=== PATIENT | female | born 1990 | race Caucasian/White ===

== ENCOUNTER 2017-04-22 12:39 | Emergency (ER) | payer OTHER ==
[2017-04-22] MEDS ORDERED: Sodium Chloride 0.9% 1,000 ML IV ONE (13:28)
[2017-04-22 13:46] LABS: BASO % 0.4 % (0.0-2.0); EOS # 0.3 K/uL (0.0-0.7); EOS % 2.3 % (0.0-4.0); HEMATOCRIT 37.3 % (34.0-47.0); LYMPH # 2.6 K/uL (1.0-4.3); LYMPH % 23.5 % (20.0-40.0); MEAN CELL VOLUME 84.9 fL (81.0-99.0); MEAN CORPUSCULAR HEMOGLOBIN 28.6 pg (27.0-31.0); MEAN CORPUSCULAR HGB CONC 33.7 g/dL (33.0-37.0); MEAN PLATELET VOLUME 9.4 fL (7.2-11.7); MONO # 0.7 K/uL (0.0-0.8); MONO % 6.3 % (0.0-10.0); RED CELL DISTRIBUTION WIDTH 13.5 % (11.5-14.5)
[2017-04-22 13:56] LABS: RBC URINE 1 /hpf (0-3); URINE BACTERIA FEW (<OCC); URINE BILIRUBIN NEGATIVE (NEGATIVE); URINE BLOOD NEGATIVE (NEGATIVE); URINE COLOR Yellow (YELLOW); URINE GLUCOSE (UA) NORMAL (Normal); URINE KETONE NEGATIVE (NEGATIVE); URINE LEUKOCYTE ESTERASE NEG Leu/uL (Negative); URINE PROTEIN NEGATIVE (NEGATIVE); URINE UROBILINOGEN NORMAL mg/dL (0.2-1.0); WBC URINE 3 /hpf (0-5)
[2017-04-22] MEDS ORDERED: Sodium Chloride 0.9% 1,000 ML ONE (14:04)
[2017-04-22 14:44] LABS: CHLORIDE 103 mmol/L (98-107); SODIUM 137 mmol/L (132-148)
[2017-04-22 14:45] LABS: POTASSIUM 4.2 mmol/L (3.6-5.2)
[2017-04-22 14:47] LABS: ALKALINE PHOSPHATASE 52 U/L (38-126); ALT/SGPT 25 U/L (9-52); AST/SGOT 22 U/L (14-36); BILIRUBIN,TOTAL 0.5 mg/dL (0.2-1.3); BLOOD UREA NITROGEN 8 mg/dL (7-17); CARBON DIOXIDE 20 mmol/L (22-30); GFR AFRICAN-AMERICAN > 60; GLUCOSE,RANDOM 83 mg/dL (65-105); TOTAL PROTEIN 7.2 g/dL (6.3-8.3)
[2017-04-22 14:48] LABS: CALCIUM 8.4 mg/dl (8.6-10.4)
--- NOTE | 2017-04-22 15:22 | C.PDOC ---
History Of Present Illness Pt has a near-syncopal episode while at an outpt office. Time Seen by Provider: 04/22/17 13:19 Chief Complaint (Nursing): Dizziness/Lightheaded History Per: Patient Onset/Duration Of Symptoms: Hrs (Just [employer]) Current Symptoms Are (Timing): Better Activity At Onset Of Symptoms: Walking Associated Symptoms Preceding Syncopal Episode: Lightheadedness, Worse With Standing Seizure Or Post-ictal Symptoms: None Possible Causative Factor(s): Lightheaded W/Standing Fall Associated With With Symptoms: No Severity: Moderate Additional History Per: Prior Records - Symptoms Of CVA Recent Head Trauma: No Past Medical History Reviewed: Historical Data, Nursing Documentation, Vital Signs Vital Signs: Last Vital Signs Temp 98.1 F 04/22/17 12:53 Pulse 95 H 04/22/17 12:53 Resp 20 04/22/17 12:53 BP 116/87 04/22/17 12:53 Pulse Ox 97 04/22/17 12:53 - Medical History PMH: HTN (GESTATIONAL) Other PMH: Pt is 21 weeks . Surgical History: - [facility] INJECT/INFUSE NEC (03/14/14) Family History: States: Unknown Family Hx - Social History Hx Tobacco Use: No Hx Alcohol Use: No Hx Substance Use: No Review Of Systems Except As Marked, All Systems Reviewed And Found Negative. Constitutional: Negative for: Fever Cardiovascular: Negative for: Chest Pain Respiratory: Negative for: Shortness of Breath Gastrointestinal: Positive for: Nausea. Negative for: Vomiting, Abdominal Pain Genitourinary: Negative for: Dysuria, Vaginal Discharge, Vaginal Bleeding Musculoskeletal: Positive for: Back Pain (low, due to fall days ago). Negative for: Neck Pain, Leg Pain Skin: Negative for: Rash Neurological: Negative for: Weakness, Numbness, Seizures, Altered Mental Status , Headache Physical Exam - Physical Exam Appears: Non-toxic, No Acute Distress Skin: Normal Color, Warm, Dry, No Rash Head: Atraumatic, Normacephalic Eye(s): bilateral: Normal Inspection, PERRL, EOMI Neck: Normal ROM, Supple Cardiovascular: Rhythm Regular Respiratory: Normal Breath Sounds, No Accessory Muscle Use Gastrointestinal/Abdominal: Soft, No Tenderness, Other (Gravid) Back: No CVA Tenderness Extremity: Normal ROM, No Pedal Edema, No Calf Tenderness Neurological/Psych: Oriented x3, Normal Speech, Normal Cognition, Normal Motor, Normal Sensation ED Course And Treatment - Laboratory Results Result Diagrams: 04/22/17 13:41 04/22/17 13:41 Lab Interpretation: No Acute Changes ECG: Interpreted By Me, Viewed By Me ECG Rhythm: Sinus Rhythm, Nonspecific Changes ECG Interpretation: No Acute Changes Rate From EC O2 Sat by Pulse Oximetry: 97 Pulse Ox Interpretation: Normal Progress Note: Pt is ambulating without dizziness. Reassessment Condition: Improved Progress - Interventions Interventions:: Observation, Intravenous fluid - Data Reviewed Data Reviewed: Lab, EKG, Old records - Patient Status Patient status: Completely improved - Continuity of Care Discussed patient case with:: Patient, Family-HIPPA compliant, ED Nurse - Patient Plan Patient Plan: Discharge, F/U with PCP, Continue present meds Medical Decision Making Medical Decision Making: Pt will be transferred to [facility] ED to further evaluation. Disposition Counseled Patient/Family Regarding: Studies Performed, Diagnosis, Need For Followup - Disposition Referrals: Darell Gillespie MD [Medical Doctor] - Disposition: HOME/ ROUTINE Disposition Time: 15:24 Condition: IMPROVED Additional Instructions: Drink plenty of fluids. Follow up with your doctor for further evaluation and treatment. Return to the ER if you pass out, develop worsening of symptoms or if you have any other concerns. Instructions: Near Syncope (ED) Forms: [facility] (Albanian) - Clinical Impression Clinical Impression: Near syncope,
[2017-04-22 16:22] VITALS: BP 111/69; PULSE 86; RESP 18; TEMP 98.3; O2SAT 99
--- NOTE | 2017-04-22 16:32 | OBHP ---
Datetime: 04/22/2017 16:26 IP Adm Impression: , intrauterine IP Chief Complaint Other: checkj heart beat IP Adm Impression Other: fhr 167 bpm IP Admit Plan: Discharge home Admit Comment, IP Provider: patient sent over from er to check fhr as it could not be auscultated on doppler.patient seen in ed for c/o feeling weak after the ultrasound Patient reports active movement has level 2 ultrasound today and was told everything is ok On exam abodmnen- soft and nontender FHR check by ultrasound.fhr 167bpm. Plan-patient discharged home Extremities - PN: Normal Lungs - PN: Normal Heart - PN: Normal General - PN: Normal Gestation - Est Wks by US: 21.2 EGA AdmitDate IP: 21.2 Vital Signs Provider: Reviewed IP Chief Complaint: Other
--- NOTE | 2017-04-23 08:09 | CARD ---
APPROVED REPORT EKG Measurement Heart [id number] <Conclusion> Normal sinus rhythm Nonspecific T wave abnormality Abnormal ECG
== END 2017-04-22 15:55 | disposition home or self-care (01) ==
LOC: C.ER 12:39 → C.EROB 12:39
DX: Z34.92 Encounter for supervision of normal pregnancy, unspecified, second trimester (principal); Z3A.21 21 weeks gestation of pregnancy